=== PATIENT | female | born 1960 | race Caucasian/White ===

== ENCOUNTER 2018-10-04 09:24 | Emergency (ER) | payer SELFPAY ==
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
[2018-10-04 10:25] VITALS: BP 165/103
[2018-10-04] MEDS ORDERED: OXYcodone/APAP 5/325MG TABLET PO ONE (10:30)
[2018-10-04] MEDS ORDERED: KETOROLAC 30 MG/1 ML IM ONE (10:30)
[2018-10-04] MEDS ORDERED: OXYcodone/APAP 5/325MG TABLET ONE (10:32)
[2018-10-04] MEDS ORDERED: KETOROLAC 30 MG/1 ML ONE (10:32)
--- NOTE | 2018-10-04 10:50 | NUR ---
PT AMBULATORY TO WHEELCHAIR. PT CHOOSES TO USE WHEELCHAIR TO GO DOWN RUTH TO BATHROOM. NO ACUTE DISTRESS NOTED.
--- NOTE | 2018-10-04 11:31 | NUR ---
PT REFUSES TO WAIT FOR ASSISTANCE TO BR. PT AMBULATORY WITH STEADY GAIT TO BATHROOM.
[2018-10-04] MEDS ORDERED: HYDROcodone/APAP 5/325 TABLET PO PRN (12:00)
--- NOTE | 2018-10-04 12:16 | NUR ---
PT STATES "I'VE BEEN SPEAKING WITH A GIRL NAMED JUDIT. SHE IS HELPING ME WITH RESOURCES SINCE I JUST GOT HERE YESTERDAY FROM [place]."
--- NOTE | 2018-10-04 12:17 | NUR ---
DIET TRAY GIVEN TO PT.
[2018-10-04] MEDS ORDERED: PLEASE ENTER HEIGHT AND WEIGHT MC SCH (12:38)
--- NOTE | 2018-10-04 12:57 | NUR ---
THIS RN TO BREAK PRIMARY. AT THIS TIME OBSERVED PT ESCORTED TO DC BY MARY KAY MARTINEZ
== END 2018-10-04 13:01 | disposition home or self-care (01) ==
LOC: ED 11:49
DX: S92.412A Displaced fracture of proximal phalanx of left great toe, initial encounter for closed fracture (principal); M47.896 Other spondylosis, lumbar region; M54.5 Low back pain; M17.11 Unilateral primary osteoarthritis, right knee; Z72.9 Problem related to lifestyle, unspecified; W01.0XXA Fall on same level from slipping, tripping and stumbling without subsequent striking against object, initial encounter; Y93.89 Activity, other specified; Y92.89 Other specified places as the place of occurrence of the external cause; Y99.8 Other external cause status
CPT/HCPCS: 72110; 73564; 73630; 96372; 99283; J1885

== ENCOUNTER 2018-10-05 12:26 | Emergency (ER) | payer SELFPAY ==
[~2018-10-05] VITALS: Ht 162.6 cm; Wt 80.2 kg
[2018-10-05 12:35] VITALS: BP 183/90
[2018-10-05] MEDS ORDERED: LORazepam 1MG TABLET PO ONE (13:00)
[2018-10-05] MEDS ORDERED: LORazepam 1MG TABLET ONE (13:13)
--- NOTE | 2018-10-05 13:18 | NUR ---
PT HERE FOR PAIN MEDICATIONS. PT REPORTS SHE IS UNABLE TO FILL HER NARCOTIC MEDICATION BECAUSE SHE DOES NOT HAVE MONEY. PT LEFT [facility] YESTERDAY AFTER SW HELPED HER GET INTO THE INTERMEDIATE. PT HAS NO S/SX OF [place]. PT IS A/OX4 AND VERY DEMANDING THAT HER PAIN BE ADDRESSED IMMEDIATELY. PT IN ROOM AT THIS TIME.
--- NOTE | 2018-10-05 13:19 | NUR ---
SPOKE WITH SW, PT WAS GIVEN MANY RESOURCES AND AT THIS TIME IS NOT UTILIZING BECAUSE WE DO NOT WANT TO FILL HER NARCOTIC PAIN MEDICATION. PT AT THIS TIME IS HOSTILE WITH STAFF. PT OFFERED FOOD AND REFUSED.
--- NOTE | 2018-10-05 13:21 | NUR ---
Patient/Caregiver given discharge instructions and they have confirmed that they understand the instructions. Patient ambulatory with steady gait.
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
--- NOTE | 2018-10-05 13:47 | NUR ---
Patient/Caregiver given discharge instructions and they have confirmed that they understand the instructions. Patient ambulatory with steady gait.
== END 2018-10-05 13:48 | disposition home or self-care (01) ==
LOC: ED 13:37
DX: G89.29 Other chronic pain (principal); M25.561 Pain in right knee; M54.5 Low back pain
CPT/HCPCS: 99283

== ENCOUNTER 2019-03-08 06:14 | Emergency (ER) | payer SELFPAY ==
[~2019-03-08] VITALS: Ht 162.6 cm; Wt 75.5 kg
[2019-03-08 06:25] VITALS: BP 150/84
[2019-03-08] MEDS ORDERED: ACETAMINOPHEN 500 MG TABLET PO ONE (07:00)
[2019-03-08] MEDS ORDERED: ACETAMINOPHEN 500 MG TABLET ONE (07:19)
--- NOTE | 2019-03-08 08:22 | NUR ---
Patient given discharge instructions and they have confirmed that they understand the instructions. Patient ambulatory with steady gait.
== END 2019-03-08 08:24 | disposition home or self-care (01) ==
LOC: ED 08:00
DX: S42.254A Nondisplaced fracture of greater tuberosity of right humerus, initial encounter for closed fracture (principal); G89.29 Other chronic pain; M54.9 Dorsalgia, unspecified; M19.90 Unspecified osteoarthritis, unspecified site
CPT/HCPCS: 99283

== ENCOUNTER 2019-03-10 05:00 | Emergency (ER) | payer SELFPAY ==
[~2019-03-10] VITALS: Ht 162.6 cm; Wt 75.0 kg
[2019-03-10 05:05] VITALS: BP 170/92
[2019-03-10] MEDS ORDERED: ACETAMINOPHEN 500 MG TABLET ONE (05:24)
[2019-03-10] MEDS ORDERED: hydrOXyzine 50MG TABLET ONE (05:24)
[2019-03-10] MEDS ORDERED: ACETAMINOPHEN 500 MG TABLET PO ONE (05:30)
[2019-03-10 05:41] LABS: BASOPHILS # (AUTO) 0.02 x10^3/uL (0-0.1); BASOPHILS % (AUTO) 0 % (0-1); EOSINOPHILS # (AUTO) 0.19 x10^3/uL (0-0.4); EOSINOPHILS % (AUTO) 2 % (1-7); LYMPHOCYTES # (AUTO) 0.74 x10^3/uL (1-3.4); LYMPHOCYTES % (AUTO) 10 % (22-44); MD NO; MEAN CORPUSCULAR HGB CONC 33.1 g/dL (32.4-35.8); MEAN CORPUSCULAR VOLUME 90.7 fL (80-100); MEAN PLATELET VOLUME 7.9 fL (7.4-10.4); MONOCYTES # (AUTO) 0.66 x10^3/uL (0.2-0.8); MONOCYTES % (AUTO) 8 % (2-9); NEUTROPHILS # (AUTO) 6.19 x10^3/uL (1.8-6.8); NEUTROPHILS % (AUTO) 80 % (42-75); PLATELET COUNT 237 x10^3/uL (130-400); RED BLOOD COUNT 3.31 x10^6/uL (3.82-5.3); RED CELL DISTRIBUTION WIDTH 16.1 % (9.6-15.2)
[2019-03-10 05:50] LABS: ANION GAP 8 mmol/L (5-15); CALCIUM 9.3 mg/dL (8.5-10.1); CHLORIDE 106 mmol/L (98-107)
[2019-03-14] MEDS ORDERED: ALBU8.5H8 INH (08:50)
== END 2019-03-10 06:26 | disposition home or self-care (01) ==
LOC: ED 05:11
DX: L20.9 Atopic dermatitis, unspecified (principal); L30.9 Dermatitis, unspecified; I10 Essential (primary) hypertension; D64.9 Anemia, unspecified; F17.200 Nicotine dependence, unspecified, uncomplicated
CPT/HCPCS: 36415; 80048; 85025; 99283; Q0177

== ENCOUNTER 2019-03-17 10:43 | Emergency (ER) | payer SELFPAY ==
[~2019-03-17] VITALS: Ht 162.6 cm; Wt 75.0 kg
[~2019-03-17 10:43] MED LIST: ALBU8.5H8 INH
[2019-03-17 10:47] VITALS: BP 145/108
[2019-03-17] MEDS ORDERED: OXYcodone/APAP 5/325MG TABLET ONE (11:07)
[2019-03-17] MEDS ORDERED: OXYcodone/APAP 5/325MG TABLET PO ONE (11:30)
[2019-03-17] MEDS ORDERED: FOSFOMYCIN 3 GM PACKET ONE (15:21)
== END 2019-03-17 12:29 | disposition home or self-care (01) ==
LOC: ED 12:17
DX: M54.2 Cervicalgia (principal); G89.29 Other chronic pain; M25.511 Pain in right shoulder; W22.8XXA Striking against or struck by other objects, initial encounter; Y93.89 Activity, other specified; Y92.410 Unspecified street and highway as the place of occurrence of the external cause; Y99.8 Other external cause status
CPT/HCPCS: 72125; 99284